=== PATIENT | female | born 1935 | race Caucasian/White ===

== ENCOUNTER 2021-06-09 07:43 | Observation (INO) | payer OTHER ==
[2021-06-05 09:01] LABS: BASOPHILS % 0.6 % (0.0-1.0); EOSINOPHILS # (AUTO) 0.3 (0.0-0.4); HEMATOCRIT 35.7 % (34.2-44.1); LYMPHOCYTES % 31.3 % (18.0-39.1); MEAN CORPUSCULAR HEMOGLOBIN 29.9 pg (28-32); MEAN CORPUSCULAR HGB CONC 30.8 g/dL (31-35); MONOCYTES # (AUTO) 0.5 (0.2-0.8); MONOCYTES % 7.9 % (4.4-11.3); NEUTROPHILS # (AUTO) 3.5 (2.1-6.9); PLATELET COUNT 244 x10e3/uL (140-360); RED BLOOD COUNT 3.68 x10e6/uL (3.6-5.1); RED CELL DISTRIBUTION WIDTH 14.3 % (11.7-14.4)
[2021-06-05 09:35] LABS: ANION GAP 18.1 mmol/L (8-16); CALCIUM 9.2 mg/dL (8.4-10.2); CREATININE, SERUM 0.83 mg/dL (0.57-1.11); POTASSIUM 4.1 mmol/L (3.5-5.1)
[2021-06-05 10:31] LABS: INR 0.99; PROTHROMBIN TIME 13.7 seconds (11.9-14.5)
[2021-06-05 10:34] LABS: PARTIAL THROMBOPLASTIN TIME 28.8 seconds (23.8-35.5)
[~2021-06-09] VITALS: Ht 172.7 cm; Wt 58.1 kg
[~2021-06-09 07:43] MED LIST: AFRIN15 ML IH; AFRIN30 ML; AMLODIPINE BESY10 MG PO; ASPIR 8181 MG PO; AZITHROMYCIN250 MG PO; HYDROCHLOROTH12.5 MG PO; HYDROCODONE; LINZESS PO; LINZESS290 MCG PO; LISINOPRIL-HCT1 EACH PO; METOPROLOL TART50 MG PO; NORCO 5-325 TA1 EACH PO; PANTOPRAZOLE SO40 MG PO; TESSALON PERLE100 MG PO
[2021-06-09] MEDS ORDERED: SODIUM CHLORIDE 0.9% 500ML 500 ML ONE (07:59)
[2021-06-09] MEDS ORDERED: Vancomycin IV 1,000 MG ONE (07:59)
[2021-06-09] MEDS ORDERED: TRANEXAMIC ACID 1,000 MG/10 ML ML ONE (07:59)
[2021-06-09] MEDS ORDERED: ROPIVACAINE 246.25 MG, EPINEPHRINE HCL 1:1000 1ML 0.5 MG, CLONIDINE HCL 0.08 MG, KETORO... INJ ONE ×5 (08:00)
[2021-06-09] MEDS ORDERED: DEXAMETHASONE SOD PHOS 10 MG/1 ML VIAL ONE (08:08)
[2021-06-09] MEDS ORDERED: CELECOXIB 200 MG CAP ONE (08:08)
[2021-06-09] MEDS ORDERED: SODIUM CHLORIDE 0.9% 50ML 100 ML ONE (08:09)
[2021-06-09] MEDS ORDERED: GABAPENTIN 300 MG CAP ONE (08:09)
[2021-06-09] MEDS ORDERED: ACETAMINOPHEN 650 MG SUPP PR PRN (10:45)
[2021-06-09] MEDS ORDERED: HYDROCODONE/APAP 7.5MG-325MG 1 EA TAB PO PRN (10:45)
[2021-06-09] MEDS ORDERED: HYDROCODONE/APAP 5MG-325MG TAB PO PRN (10:45)
[2021-06-09] MEDS ORDERED: DOCUSATE SODIUM 100 MG CAP PO PRN (10:45)
[2021-06-09] MEDS ORDERED: ONDANSETRON HCL INJ 2MG/ML 2ML 2 MG/ML VIAL IV PRN (10:45)
[2021-06-09] MEDS ORDERED: DIPHENHYDRAMINE HCL INJ 50 MG/ML VIAL IV PRN (10:45)
[2021-06-09] MEDS ORDERED: ZOLPIDEM TARTRATE 5 MG TAB PO PRN (10:45)
[2021-06-09] MEDS ORDERED: KETOROLAC TROMETHAMINE 30 MG/ML VIAL IV PRN (10:45)
[2021-06-09] MEDS ORDERED: ONDANSETRON HCL INJ 2MG/ML 2ML 2 MG/ML VIAL ONE (13:24)
[2021-06-09] MEDS ORDERED: PROPOFOL IV EMULSION 10 MG/ML 20 ML VIAL ONE (13:24)
[2021-06-09] MEDS ORDERED: EPHEDRINE SULFATE INJ 50 MG/ML VIAL ONE (13:24)
[2021-06-09] MEDS ORDERED: LIDOCAINE HCL 2% LOCAL INJ 5 ML SDV VIAL INJ ONE (13:24)
[2021-06-09] MEDS ORDERED: SEVOFLURANE INHAL SOLN 250 ML PEN BTL ONE (13:24)
[2021-06-09] MEDS ORDERED: DEXAMETHASONE SOD PHOS INJ 4 MG/ML VIAL ONE (13:24)
[2021-06-09] MEDS ORDERED: POVIDONE IODINE 0.05% 0.05 % ML PO ONE (13:24)
[2021-06-09] MEDS ORDERED: SODIUM CHLORIDE 0.9% 1000ML 1,000 ML ONE (13:27)
[2021-06-09] MEDS: SODIUM CHLORIDE 0.9% 1000ML 1,000 ML IV SCH (13:45)
[2021-06-09] MEDS ORDERED: MIDAZOLAM HCL 2 MG/2 ML VIAL ONE (13:48)
[2021-06-09] MEDS ORDERED: FENTANYL CITRATE/PF 100MCG/2 ML INJ ONE (13:48)
[2021-06-09] MEDS ORDERED: ROPIVACAINE 0.5% 5 MG/ML 30 ML SDV ONE (13:54)
[2021-06-09] MEDS ORDERED: LIDOCAINE 2%/ EPINEPHRINE 20ML MDV ONE (13:54)
[2021-06-09 14:00] VITALS: BP 129/76
[2021-06-09 14:06] VITALS: BP 129/76
[2021-06-09 16:17] VITALS: BP 107/72
[2021-06-09] MEDS: Cefazolin 1 GM in SODIUM CHLORIDE 0.9% 50ML 50 ML IV SCH (16:29)
[2021-06-09] MEDS: CELECOXIB 200 MG CAP PO SCH (17:00)
[2021-06-09] MEDS: ASPIRIN 325 MG TAB PO SCH (17:00)
[2021-06-09 20:00] VITALS: BP 110/68
[2021-06-10] VITALS: BP 105/67
[2021-06-10] MEDS: SODIUM CHLORIDE 0.9% 1000ML 1,000 ML IV SCH (00:15)
[2021-06-10] MEDS: Cefazolin 1 GM in SODIUM CHLORIDE 0.9% 50ML 50 ML IV SCH ×2 (00:56→08:16)
[2021-06-10 04:00] VITALS: BP 114/67
[2021-06-10 05:04] LABS: HEMATOCRIT 29.6 % (34.2-44.1); HEMOGLOBIN 9.5 g/dL (12.0-16.0)
[2021-06-10] MEDS: ASPIRIN 325 MG TAB PO SCH (08:16)
[2021-06-10] MEDS: CELECOXIB 200 MG CAP PO SCH (08:16)
[2021-06-10 08:20] VITALS: BP 112/61
[2021-06-10 09:00] VITALS: BP 112/61
[2021-06-10] MEDS ORDERED: METOPROLOL TARTRATE 50 MG TAB PO SCH (09:00)
[2021-06-10] MEDS ORDERED: AMLODIPINE BESYLATE 10 MG TAB PO SCH (09:00)
[2021-06-10] MEDS ORDERED: ACETAMINOPHEN 1000 MG/100 ML IV PRN (10:45)
[2021-06-10] MEDS ORDERED: FEROSUL325 MG PO (10:47)
[2021-06-10] MEDS ORDERED: COLACE100 MG PO (10:47)
[2021-06-10 11:49] VITALS: BP 114/70
[2021-06-10] MEDS ORDERED: ONDANSETRON HCL 4 MG ORAL DISINTEGRATING TAB PO PRN (12:45)
== END 2021-06-10 13:00 | disposition home health service (06) ==
LOC: OR 07:43 → PACU V 10:34 → MED/SURG 13:07
PROVIDERS: ADMIT Specialist; ATTEND Specialist
DX: M17.11 Unilateral primary osteoarthritis, right knee (principal); Z88.1 Allergy status to other antibiotic agents; Z91.048 Other nonmedicinal substance allergy status; K21.9 Gastro-esophageal reflux disease without esophagitis; I10 Essential (primary) hypertension; Z01.810 Encounter for preprocedural cardiovascular examination; Z01.812 Encounter for preprocedural laboratory examination; Z01.818 Encounter for other preprocedural examination; Z20.822 Contact with and (suspected) exposure to COVID-19; D64.9 Anemia, unspecified
CPT/HCPCS: 27447; 36415 ×2; 71046; 73560; 80048; 85014; 85018; 85025; 85610; 85730; 86850; 86900; 93005; 97110 ×2; 97116 ×2; 97139; 97161; 97530; C1713 ×3; C1776 ×2; G0378 ×2; J0171; J0690 ×2; J1100 ×2; J1885; J2001 ×2; J2250; J2405; J2704; J2795; J3010; J3370; J7030; J7040; U0002; 86920

== ENCOUNTER 2021-12-06 16:57 | Emergency (ER) | payer OTHER ==
[~2021-12-06] VITALS: Ht 172.7 cm; Wt 58.1 kg
[~2021-12-06 16:57] MED LIST changes: +COLACE100 MG PO; +FEROSUL325 MG PO
== END 2021-12-06 17:25 | disposition home or self-care (01) ==
LOC: ER 17:13
DX: U07.1 COVID-19 (principal)
CPT/HCPCS: 99282